=== PATIENT | male | born 1980 | race Hispanic/Latino ===

== ENCOUNTER 2024-04-03 15:16 | Emergency (ER) | payer BC ==
[~2024-04-03] VITALS: Ht 180.3 cm; Wt 120.2 kg
[2024-04-03 15:26] VITALS: PULSE 72; RESP 15; TEMP 99.6; O2SAT 100
[2024-04-03 15:40] LABS: BASOPHILS # (AUTO) 0.1 (0.0-0.1); BASOPHILS % 0.5 % (0.0-1.0); EOSINOPHILS # (AUTO) 0.1 (0.0-0.4); HEMATOCRIT 47.3 % (38.2-49.6); HEMOGLOBIN 15.3 g/dL (14.0-18.0); LYMPHOCYTES # (AUTO) 1.2 (1.0-3.2); MEAN CORPUSCULAR HEMOGLOBIN 28.6 pg (28-32); MEAN CORPUSCULAR HGB CONC 32.3 g/dL (31-35); MEAN CORPUSCULAR VOLUME 88.4 fL (81-99); MONOCYTES # (AUTO) 0.8 (0.2-0.8); MONOCYTES % 7.2 % (4.4-11.3); NEUTROPHILS # (AUTO) 8.7 (2.1-6.9); NEUTROPHILS % 79.9 % (38.7-80.0); PLATELET COUNT 220 x10e3/uL (140-360); RED BLOOD COUNT 5.35 x10e6/uL (4.3-5.7); RED CELL DISTRIBUTION WIDTH 12.7 % (11.7-14.4); WHITE BLOOD COUNT 10.85 x10e3/uL (4.8-10.8)
[2024-04-03 15:50] LABS: INR 0.99; PROTHROMBIN TIME 13.6 seconds (11.9-14.5)
[2024-04-03 15:51] LABS: PARTIAL THROMBOPLASTIN TIME 26.6 seconds (23.8-35.5)
[2024-04-03 15:59] LABS: ALBUMIN 3.8 g/dL (3.5-5.0); ALBUMIN/GLOBULIN RATIO 1.2 (0.8-2.0); BILIRUBIN,TOTAL 1.4 mg/dL (0.2-1.2); CALCIUM 9.1 mg/dL (8.4-10.2); CREATININE, SERUM 1.04 mg/dL (0.72-1.25); MAGNESIUM 2.1 MG/DL (1.3-2.1)
[2024-04-03 16:09] LABS: TROPONIN I 0.003 ng/mL (0-0.300)
[2024-04-03] MEDS: Morphine 4mg INJECTION 4 MG/ML INJ IV STA (16:12)
[2024-04-03] MEDS: ONDANSETRON HCL INJ 2MG/ML 2ML 2 MG/ML VIAL IV STA (16:15)
[2024-04-03] MEDS: SODIUM CHLORIDE 0.9% 1000ML 1,000 ML IV STA (16:15)
[2024-04-03] MEDS ORDERED: DICYCLOMINE HCL20 MG PO (18:02)
[2024-04-03] MEDS ORDERED: PANTOPRAZOLE SO40 MG PO (18:02)
[2024-04-03] MEDS ORDERED: ONDANSETRON ODT4 MG PO (18:02)
[2024-04-03] MEDS ORDERED: IOPAMIDOL 370 MG/ML 100 ML INFUS..BTL INJ ONE (19:26)
== END 2024-04-03 18:16 | disposition home or self-care (01) ==
LOC: ER 15:25
DX: R50.9 Fever, unspecified (principal); K80.50 Calculus of bile duct without cholangitis or cholecystitis without obstruction; R11.2 Nausea with vomiting, unspecified; R10.11 Right upper quadrant pain; K21.9 Gastro-esophageal reflux disease without esophagitis; R94.31 Abnormal electrocardiogram [ECG] [EKG]; Z98.84 Bariatric surgery status; F17.210 Nicotine dependence, cigarettes, uncomplicated
CPT/HCPCS: 36415; 71045; 74177; 80053; 82550; 83690; 83735; 84484; 85025; 85610; 85730; 93005; 99284; J2270; J2405; J2470; J7030; Q9967